=== PATIENT | female | born 2005 | race Caucasian/White ===

== ENCOUNTER 2025-01-18 09:07 | Emergency (ER) | payer MEDICAID, SELFPAY ==
--- NOTE | ~2025-01-18 | US_ITS ---
EXAMINATION: US ABDOMEN LIMITED HISTORY: RUQ Pain abnormal LFTs - GB and CBD TECHNIQUE: Real-time grayscale ultrasound imaging of the gallbladder was performed and images were reviewed. COMPARISON: There are no prior studies available for comparison. FINDINGS: Gallbladder and biliary tree: The gallbladder is unremarkable, without evidence of calculi, wall thickening, or pericholecystic fluid. There is no sonographic Johnson sign. The common bile duct is normal in caliber measuring 6 mm. US/US abdomen limited IMPRESSION: Unremarkable right upper quadrant ultrasound. Electronically signed by: Ananth Christian MD 01/18/2025 12:22 PM EDT
[2025-01-18 09:46] VITALS: BP 107/69; PULSE 88; RESP 16; TEMP 37; O2SAT 98; BMI 28.3
--- NOTE | 2025-01-18 09:48 | ED_ITS ---
HPI - Nausea/Vomiting/Diarrhea General Chief complaint: Nausea/Vomiting/Diarrhea Stated complaint: stomach issues, nausea Time Seen by Provider: 01/18/25 12:00 Source: patient, RN notes reviewed and old records reviewed Mode of arrival: ambulatory Limitations: no limitations History of Present Illness ED Provider: Keily BERNARDO Narrative: 19-year-old female who denies any past medical history presents for evaluation of nausea. Patient reports that her symptoms started 2-3 weeks ago. She initially had pain. She states that she gets nauseous even thinking about food. Denies any previous abdominal surgeries. She has never seen a GI doctor She reports a mild sore throat, general malaise, denies any fevers or chills Denies any cough or shortness of breath The patient is presenting from [facility] in [facility], she denies any known sick contacts She reports that she does not typically drink alcohol but this past weekend she did drink in excess, about 12 drink since Friday Associated nausea: Yes Related Data Previous Rx's ?Medication ?Instructions ?Recorded ondansetron 4 mg disintegrating 4 mg PO Q8H PRN nausea and 01/18/25 tablet vomiting #20 tabs prednisone 20 mg tablet 40 mg (2 x 20 mg) PO DAILY # 10 tabs 01/18/25 Allergies Allergy/AdvReac Type Severity Reaction Status Date / Time No Known Allergies Allergy Verified 01/18/25 09:50 Review of Systems 2 Constitutional: Constitutional: Denies chills, Denies fever(s), Reports lethargy, Reports malaise and Reports poor appetite Eyes: Eyes: Denies blurry vision ENT: Denies dizziness and Denies dry mouth Cardiovascular: Cardiovascular: Denies chest pain and Denies dyspnea on exertion Respiratory: Respiratory: Denies cough and Denies dyspnea on exertion Gastrointestinal: Gastrointestinal: Reports abdominal pain, Denies heartburn, Denies diarrhea, Denies loose stools, Reports nausea and Reports vomiting Musculoskeletal: Musculoskeletal: Denies back pain Integumentary/Breasts: Skin/Breast: Denies rash Neurologic: Denies dizziness PMFSH Social History Social History Smoked in Last 30 Days: Yes Use of substances other than those prescribed or required for medical reasons: Yes Substance Use Type: Marijuana Advance Directives: No Advance Directives Information Provided: Yes Do you have a plan to hurt others: No Plan Physical Exam 2 Vital Signs: Vital Signs: Last Vital Signs Temp 97.4 F 01/18/25 14:34 Pulse 73 01/18/25 14:34 Resp 14 01/18/25 14:34 BP 89/61 L 01/18/25 14:34 Pulse Ox 93 01/18/25 14:34 O2 Del Method Room Air 01/18/25 14:34 BMI result Body Mass Index 28.3 Const: General: healthy appearing, comfortable, no acute distress, alert and awake Nutritional Appearance: well nourished Orientation/consciousness: p atient oriented x3 HEENT: Head: Yes normocephalic and Yes atraumatic Throat: Yes posterior oropharynx normal Eyes: Eyelids: Yes eyelids normal Conjunctivae: conjunctivae normal S clerae: sclerae normal Corneas: corneas normal Pupils: Equal, round and reactive pupils present EOM: EOMs intact bilaterally Neck: Neck: Yes full ROM Resp: Effort & Inspection: normal respiratory effort, able to speak in complete sentences and not labored Cardio: Rate: regular rate Rhythm: regular rhythm GI: Inspection: No distended Palpation (GI): Soft to palpation, not firm, nontender, no guarding and not rigid Skin: General skin exam: elasticity normal Neuro: General: patient oriented x3 Cranial nerves: Yes Equal, round and reactive pupils present and Yes Bilaterally intact EOM present Cognition (Neuro): normal cognition Course Course Course Narrative: 19 yo female with no PMH currently at [facility], she is prescribed anxiety and depression medications in past but not taking them. She is on multivitamins. She notes 3 weeks of nausea everytime she eats or smells food. NO diarrhea, no abdominal pain. Has irregular periods. Has never had this before. She has not seen the health center at [facility]. She states her nausea and symptoms are improved. this is a RAPID medical screening exam the rest of the history and physical exam is to be done by the main provider. SERGEI 01/18/25 949am. Reevaluation(s) Reevaluation #1: Patient did test positive for mononucleosis. Discussed with the attending, Dr. Meza who recommends a course of prednisone which I will prescribe for the patient as there are no contraindications. Time: 14:24 Medications Administered Discontinued Medications Generic Name Dose Route Start Last Admin Trade Name Freq PRN Reason Stop Dose Admin Sodium Chloride 1,000 mls @ 999 mls/hr 01/18/25 12:45 01/18/25 13:59 Ns IV 01/18/25 13:45 999 mls/hr .Q1H1M SHAINA Administration Medical Decision Making Medical Decision Making [facility] Narrative: 19-year-old female presents for evaluation of 3 weeks of nausea with vomiting and decreased appetite. She initially had some abdominal pain but currently does not have any abdominal pain. She is not . Her labs are significant for a mild leukocytosis with an abnormal differential including elevated lymphocytes, low neutrophils and smudge cells being present. I suspect that this may be due to a viral illness such as mononucleosis. The patient has elevated liver enzymes which also support this theory. She does complain of mild sore throat. A liver ultrasound was ordered given the elevated LFTs. She did drink alcohol excessively. She denies having taken any Tylenol. Her abdominal exam is quite reassuring, she is nontender, less likely surgical abdomen or obstructive biliary disease. Less likely acute appendicitis also given that this has been going on for 2-3 weeks already. Differential Diagnosis Differential Diagnoses: The differential diagnosis associated with the presentation includes Mononucleosis Gena bar virus Hepatitis A Gastroenteritis Acute appendicitis Liver cirrhosis Wahl Admission/Observation Consideration of admission/observation: Escalation of care including admission/observation considered Lab Data [facility] Lab Attestation statement: I reviewed the patient's lab results. As above 01/18/25 10:12 01/18/25 10:12 Labs: Lab Results 01/18/25 01/18/25 01/18/25 Range/Units 10:12 12:21 12:31 WBC 11.4 H (4.8-10.8) X10*3/uL RBC 4.48 (4.20-5.50) X10*6/uL Hgb 13.2 (12.0-16.0) g/dl Hct 40.9 (37.0-47.0) % MCV 91.3 (80.0-98.0) fL MCH 29.5 (27.0-33.0) pg MCHC 32.3 (31.0-35.0) g/dl RDW 14.3 (11.0-16.0) % Plt Count 261 (160-400) X10*3/uL MPV 9.2 L (9.4-12.3) fL Immature Gran % (Auto) Cancelled Neut % (Auto) Cancelled Lymph % (Auto) Cancelled [place] % (Auto) Cancelled Eos % (Auto) Cancelled Baso % (Auto) Cancelled Lymph # (Auto) Cancelled [place] # (Auto) Cancelled Eos # (Auto) Cancelled Baso # (Auto) Cancelled Abs Immat Gran (auto) Cancelled Absolute Neuts (auto) Cancelled Absolute Nucleated RBC 0.000 (0.0-0.012) X10*3/uL Nucleated RBC % (auto) 0.0 (0.0-0.2) /100WBC Neutrophils % (Manual) 13 L (45-73) % Band Neutrophils % 1 L (3-5) % Lymphocytes % (Manual) 69 H (20-40) % Atypical Lymphs % (Man) 11 H (0-6) % Monocytes % (Manual) 5 (2-11) % Eosinophils % (Manual) 1 (0-4) % Abs Neuts (Manual) 1.6 L (2.0-8.3) X10*3/uL Lymphocytes # (Manual) 7.9 H (1.2-4.9) X10*3/uL Atyp Lymphs # (Manual) 1.3 x10*3/uL Monocytes # (Manual) 0.6 (0.1-1.2) X10*3/uL Eosinophils # (Manual) 0.1 (0.0-0.4) X10*3/uL Smudge Cells PRESENT Platelet Estimate NORMAL (NORMAL) Plt Morphology Comment NORMAL RBC Morphology NORMAL Smear Tech's Comments MANUAL DIFF Sodium 142 (135-145) mmol/L Potassium 3.9 (3.3-5.1) mmol/L Chloride 110 H (96-108) mmol/L Carbon Dioxide 26 (22-29) mmol/L Anion Gap 10 L (12-20) BUN 8 L (9-16) mg/dL Creatinine 0.68 (0.5-1.4) mg/dL Estim Creat Clear Calc 127.0 Estimated GFR > 60 Random Glucose 92 (60-115) mg/dL Calcium 9.1 (8.4-10.2) mg/dL Magnesium 2.2 (1.6-2.6) mg/dL Total Bilirubin 0.5 (0.0-1.0) mg/dL Direct Bilirubin 0.3 (0.0-0.5) mg/dL AST 170 H (5-31) U/L ALT 151 H (0-31) U/L Alkaline Phosphatase 197 H (39-117) U/L Total Protein 7.4 (6.5-8.0) g/dL Albumin 4.1 (3.5-5.0) g/dL Lipase 11 (8-78) U/L Beta HCG, Quant < 2 mIU/mL Urine Color Yellow Urine Appearance Clear Urine pH 6.5 (5.0-9.0) Ur Specific [place] 1.015 (1.005-1.025) Urine Protein Negative (Neg-Trace) mg/dL Urine Glucose (UA) Negative (Negative) mg/dL Urine Ketones Negative (Negative) mg/dL Urine Blood Trace H (Negative) Urine Nitrite Negative (Negative) Ur Leukocyte Esterase Trace H (Negative) Urine RBC 3-5 H (0-2) /HPF Urine WBC 0-5 (0-5) /HPF Ur Squamous Epith Cells 3-5 (0-2) /HPF Urine Bacteria 1+ (None Seen) Hyaline Casts 0-2 (0-2) /LPF Acetaminophen < 3 (<30) mcg/mL Monoscreen (Negative) 01/18/25 Range/Units 13:21 WBC (4.8-10.8) X10*3/uL RBC (4.20-5.50) X10*6/uL Hgb (12.0-16.0) g/dl Hct (37.0-47.0) % MCV (80.0-98.0) fL MCH (27.0-33.0) pg MCHC (31.0-35.0) g/dl RDW (11.0-16.0) % Plt Count (160-400) X10*3/uL MPV (9.4-12.3) fL Immature Gran % (Auto) Neut % (Auto) Lymph % (Auto) [place] % (Auto) Eos % (Auto) Baso % (Auto) Lymph # (Auto) [place] # (Auto) Eos # (Auto) Baso # (Auto) Abs Immat Gran (auto) Absolute Neuts (auto) Absolute Nucleated RBC (0.0-0.012) X10*3/uL Nucleated RBC % (auto) (0.0-0.2) /100WBC Neutrophils % (Manual) (45-73) % Band Neutrophils % (3-5) % Lymphocytes % (Manual) (20-40) % Atypical Lymphs % (Man) (0-6) % Monocytes % (Manual) (2-11) % Eosinophils % (Manual) (0-4) % Abs Neuts (Manual) (2.0-8.3) X10*3/uL Lymphocytes # (Manual) (1.2-4.9) X10*3/uL Atyp Lymphs # (Manual) x10*3/uL Monocytes # (Manual) (0.1-1.2) X10*3/uL Eosinophils # (Manual) (0.0-0.4) X10*3/uL Smudge Cells Platelet Estimate (NORMAL) Plt Morphology Comment RBC Morphology Smear Tech's Comments Sodium (135-145) mmol/L Potassium (3.3-5.1) mmol/L Chloride (96-108) mmol/L Carbon Dioxide (22-29) mmol/L Anion Gap (12-20) BUN (9-16) mg/dL Creatinine (0.5-1.4) mg/dL Estim Creat Clear Calc Estimated GFR Random Glucose (60-115) mg/dL Calcium (8.4-10.2) mg/dL Magnesium (1.6-2.6) mg/dL Total Bilirubin (0.0-1.0) mg/dL Direct Bilirubin (0.0-0.5) mg/dL AST (5-31) U/L ALT (0-31) U/L Alkaline Phosphatase (39-117) U/L Total Protein (6.5-8.0) g/dL Albumin (3.5-5.0) g/dL Lipase (8-78) U/L Beta HCG, Quant mIU/mL Urine Color Urine Appearance Urine pH (5.0-9.0) Ur Specific [place] (1.005-1.025) Urine Protein (Neg-Trace) mg/dL Urine Glucose (UA) (Negative) mg/dL Urine Ketones (Negative) mg/dL Urine Blood (Negative) Urine Nitrite (Negative) Ur Leukocyte Esterase (Negative) Urine RBC (0-2) /HPF Urine WBC (0-5) /HPF Ur Squamous Epith Cells (0-2) /HPF Urine Bacteria (None Seen) Hyaline Casts (0-2) /LPF Acetaminophen (<30) mcg/mL Monoscreen Positive A (Negative) Discharge Plan Discharge Clinical Impression: Infectious mononucleosis Patient Disposition: Home, Self-Care Instructions: Mononucleosis (ED) Additional Instructions: You tested positive for mononucleosis. Take prednisone 40 mg daily for the next 5 days. Take Zofran as needed for nausea and vomiting I recommend following up with your primary doctor, you should have repeat blood work in the next 1-2 weeks to check your liver enzymes Return for new or worsening symptoms. This virus is contagious\ I recommend avoiding Tylenol and alcohol for the next few weeks until your symptoms resolved Prescriptions: New prednisone 20 mg tablet 40 mg PO DAILY Qty: 10 0RF ondansetron 4 mg tablet,disintegrating 4 mg PO Q8H PRN (Reason: nausea and vomiting) Qty: 20 0RF Print Language: [place]
[2025-01-18 10:22] LABS: Hematocrit 40.9 % (37.0-47.0); Hemoglobin 13.2 g/dl (12.0-16.0); Mean Corpuscular HGB Conc 32.3 g/dl (31.0-35.0); Mean Corpuscular Hemoglobin 29.5 pg (27.0-33.0); Mean Corpuscular Volume 91.3 fL (80.0-98.0); NRBC Abs Auto 0.000 X10*3/uL (0.0-0.012); NRBC Pct Auto 0.0 /100WBC (0.0-0.2); Red Blood Count 4.48 X10*6/uL (4.20-5.50)
[2025-01-18 10:40] LABS: Alanine Aminotransferase 151 U/L (0-31); Albumin Level 4.1 g/dL (3.5-5.0); Alkaline Phosphatase 197 U/L (39-117); Anion Gap 10 (12-20); Aspartate Amino Transferase 170 U/L (5-31); Blood Urea Nitrogen 8 mg/dL (9-16); Calcium 9.1 mg/dL (8.4-10.2); Carbon Dioxide 26 mmol/L (22-29); Chloride 110 mmol/L (96-108); Creatinine Clr Calc Pharmacy 127.0; Estimated Glomerular Filt Rate > 60; Lipase 11 U/L (8-78); Magnesium 2.2 mg/dL (1.6-2.6); Potassium 3.9 mmol/L (3.3-5.1); Sodium 142 mmol/L (135-145); Total Protein 7.4 g/dL (6.5-8.0)
[2025-01-18 11:40] LABS: Atypical Lymphs Percent Manual 11 % (0-6); Band Neutrophils Percent 1 % (3-5); Eosinophils Percent Manual 1 % (0-4); Lymphocytes Percent Manual 69 % (20-40); Monocytes Percent Manual 5 % (2-11); Neutrophils Percent Manual 13 % (45-73)
[2025-01-18 11:41] LABS: RBC Morphology NORMAL
[2025-01-18 11:42] LABS: Smudge Cells PRESENT
[2025-01-18 11:43] LABS: Atypical Lymph Absolute Manual 1.3 x10*3/uL; Eosinophils Absolute Manual 0.1 X10*3/uL (0.0-0.4); Lymphocytes Absolute Manual 7.9 X10*3/uL (1.2-4.9); Monocytes Absolute Manual 0.6 X10*3/uL (0.1-1.2); Neutrophils Absolute Manual 1.6 X10*3/uL (2.0-8.3); Platelet Count 261 X10*3/uL (160-400); White Blood Count 11.4 X10*3/uL (4.8-10.8)
[2025-01-18 12:08] VITALS: BP 89/61; PULSE 73; RESP 14; TEMP 36.3; O2SAT 93
--- NOTE | 2025-01-18 12:15 | PC.NURSE ---
A&O x 3 Patient presents to ED from [facility]. Patient was feeling nauseous with episodes of vomiting. Denies pain, fever, SOB, Lightheadedness, dizziness, sick contacts. BP soft 89/61 all other VSS. Abdominal pain reported this morning but nothing at this time. Poor intake reported, supplementing with protein shakes. Patient reports feeling nauseous when consuming any adonay of food. Provider in to see patient. Plan of care on going.
[2025-01-18 12:31] LABS: Appearance Urine Clear; Glucose Urine UA Negative (Negative); PH 6.5 (5.0-9.0); Specific Gravity - Urine 1.015 (1.005-1.025); UMIC TRIGGER UACC YES
[2025-01-18 13:51] LABS: Acetaminophen LAB < 3 mcg/mL (<30)
[2025-01-18 14:34] VITALS: BP 89/61; PULSE 73; RESP 14; TEMP 36.3; O2SAT 93
[2025-01-18 14:37] LABS: HBS Num1 38.26 mIU/mL (0-7.99); HBc Num1 0.07 S/CO (0.00-0.79); HBsAGNum1 0.34 S/CO (0.00-0.99); Hepatitis A Antibody IgM 0.34 Index (0-0.79); Hepatitis B Surface Antigen Negative (Negative); ~HepC Num1 0.13 S/CO (0.00-0.79); ~Hepatitis A Antibody IgM Nonreactive (Nonreactive); ~Hepatitis B Surface Antibody REACTIVE (Nonreactive); ~Hepatitis C Antibody Nonreactive (Nonreactive)
[2025-01-18 14:40] VITALS: BP 96/45; PULSE 65; RESP 17; O2SAT 99
[2025-01-18 14:55] VITALS: BP 96/45; PULSE 65; RESP 17; TEMP 37; O2SAT 99
== END 2025-01-18 14:56 | disposition home or self-care (01) ==
PROVIDERS: Emergency Medicine; Physician Assistant; Emergency Provider Emergency Medicine
DX: B27.90 Infectious mononucleosis, unspecified without complication (principal); R10.11 Right upper quadrant pain; R11.0 Nausea; J02.9 Acute pharyngitis, unspecified; R53.83 Other fatigue
CPT/HCPCS: 36415; 76705; 80048; 80076; 80143; 81001; 83690; 83735; 84702; 85007; 85025; 85027; 86308; 86704; 86706; 86709; 86803; 87340; 96360; 99284

== ENCOUNTER → 2025-01-18 10:52 | Outpatient (BNV) | payer MEDICAID, SELFPAY | PROVIDERS: Visit Provider Radiology Diagnostic Radiology | DX: R10.11 Right upper quadrant pain (principal); R94.5 Abnormal results of liver function studies | CPT/HCPCS: 76705 ==